=== PATIENT | female | born 1985 | race Caucasian/White ===

== ENCOUNTER 2018-04-20 12:37 | Emergency (ER) | payer OTHER ==
[2018-04-20] MEDS ORDERED: METOCLOPRAMIDE 5 MG/ML 2 ML VIAL IVP STA (13:02)
[2018-04-20] MEDS ORDERED: diphenhydrAMINE 50 MG/ML 1 ML VIAL IVP STA (13:02)
[2018-04-20] MEDS ORDERED: SODIUM CHLORIDE 0.9% 500 ML 500 ML IV ONE (13:03)
[2018-04-20] MEDS ORDERED: KETOROLAC 30 MG/ML 1 ML VIAL IVP STA (13:03)
--- NOTE | 2018-04-20 13:06 | ED ---
Headache HPI - General Chief Complaint: Headache Stated Complaint: Migraine Time Seen by Provider: 04/20/18 12:54 Source: patient, RN notes reviewed Mode of arrival: ambulatory Limitations: no limitations - History of Present Illness Initial Comments: This a 33-year-old female presents emergency Department chief complaint migraine headache. Patient states been having issues on-and-off over the last couple weeks. Patient states his headache feels different as she feels silly off balance. Patient states that she's been trying [id number] medications no relief. Denies fever, chills, neck pain or neck stiffness. Denies any blurred vision but states she is that she's had some photophobia. Patient said nausea no vomiting no fever no chills no focal weakness. Patient states that she's had extensive workup in the past including MRI and neurology consultation. - Related Data Home Medications Medication Instructions Recorded Confirmed Cetirizine HCl [Zyrtec] 10 mg PO DAILY PRN 04/20/18 04/20/18 Ibuprofen [Children's Motrin] 400 mg PO Q8HR PRN 04/20/18 04/20/18 Sudafed Pain Pressure & Mucus 2 cap PO Q4H PRN 04/20/18 04/20/18 diphenhydrAMINE HCL [Benadryl] 25 mg PO Q4H PRN 04/20/18 04/20/18 Allergies Allergy/AdvReac Type Severity Reaction Status Date / Time Penicillins Allergy Rash/Hives Verified 04/20/18 13:35 Review of Systems ROS Statement: Those systems with pertinent positive or pertinent negative responses have been documented in the HPI. ROS Other: All systems not noted in ROS Statement are negative. Past Medical History Additional Past Medical History / Comment(s): migraine, nausea History of Any Multi-Drug Resistant Organisms: None Reported Additional Past Surgical History / Comment(s): LEEP procedure 2 Past Anesthesia/Blood Transfusion Reactions: No Reported Reaction Past Psychological History: Anxiety, Depression Smoking Status: Never smoker Past Alcohol Use History: None Reported Past Drug Use History: None Reported - Past Family History Father Family Medical History: Hypertension General Exam Limitations: no limitations General appearance: alert, in no apparent distress Head exam: Present: atraumatic, normocephalic, normal inspection Eye exam: Present: normal appearance, PERRL, EOMI. Absent: scleral icterus, conjunctival injection, periorbital swelling ENT exam: Present: normal exam, normal oropharynx, mucous membranes moist, TM's normal bilaterally Neck exam: Present: normal inspection, full ROM. Absent: tenderness, meningismus, lymphadenopathy Respiratory exam: Present: normal lung sounds bilaterally. Absent: respiratory distress, wheezes, rales, rhonchi, stridor Cardiovascular Exam: Present: regular rate, normal rhythm, normal heart sounds. Absent: systolic murmur, diastolic murmur, rubs, gallop, clicks Extremities exam: Present: normal inspection, full ROM, normal capillary refill. Absent: tenderness, pedal edema, joint swelling, calf tenderness Neurological exam: Present: alert, oriented X3, CN II-XII intact, reflexes normal, other (Finger to nose intact bilaterally without over shooting). Absent : motor sensory deficit Skin exam: Present: warm, dry, intact, normal color. Absent: rash Course Vital Signs 04/20/18 12:49 Temperature 98.3 F Pulse Rate 106 H Respiratory 18 Rate Blood Pressure 134/99 O2 Sat by Pulse 99 Oximetry Medical Decision Making - Medical Decision Making 33-year-old female presented emergency department for migraine type headache. Patient states he was slightly atypical for her. CT labwork obtained patient has normal findings. Patient is improved after IV medications. Patient did have slight reaction to Ativan as she was drowsy. Patient is here with mother, discharged to mother return parameters were discussed. Patient remains to have normal neuro exam. - Lab Data Result diagrams: 04/20/18 13:37 04/20/18 13:37 Lab Results 04/20/18 04/20/18 Range/Units 13:37 13:37 WBC 9.9 (3.8-10.6) k/uL RBC 4.89 (3.80-5.40) m/uL Hgb 15.5 (11.4-16.0) gm/dL Hct 45.4 (34.0-46.0) % MCV 92.8 (80.0-100.0) fL MCH 31.8 (25.0-35.0) pg MCHC 34.2 (31.0-37.0) g/dL RDW 12.3 (11.5-15.5) % Plt Count 204 (150-450) k/uL Neutrophils % 84 % Lymphocytes % 12 % Monocytes % 3 % Eosinophils % 0 % Basophils % 0 % Neutrophils # 8.3 H (1.3-7.7) k/uL Lymphocytes # 1.2 (1.0-4.8) k/uL Monocytes # 0.3 (0-1.0) k/uL Eosinophils # 0.0 (0-0.7) k/uL Basophils # 0.0 (0-0.2) k/uL Sodium 144 (137-145) mmol/L Potassium 4.0 (3.5-5.1) mmol/L Chloride 104 (98-107) mmol/L Carbon Dioxide 27 (22-30) mmol/L Anion Gap 13 mmol/L BUN 12 (7-17) mg/dL Creatinine 0.67 (0.52-1.04) mg/dL Est GFR (CKD-EPI)AfAm >90 (>60 ml/min/1.73 sqM) Est GFR (CKD-EPI)NonAf >90 (>60 ml/min/1.73 sqM) Glucose 116 H (74-99) mg/dL Calcium 10.3 H (8.4-10.2) mg/dL Disposition Clinical Impression: Migraine Disposition: HOME SELF-CARE Condition: Stable Instructions: Acute Headache (ED) Additional Instructions: Please return to the Emergency Department if symptoms worsen or any other concerns. Is patient prescribed a controlled substance at d/c from ED?: No Referrals: Gage Link Jr, DO [Primary Care Provider] - 1-2 days Abhay Juares DO [STAFF PHYSICIAN] - 1-2 days Time of Disposition: 15:57
[2018-04-20] MEDS ORDERED: LORazepam 2 MG/ML INJ IV STA (13:24)
[2018-04-20 13:49] LABS: Basophils % (A) 0 %; Eosinophils % (A) 0 %; HCT 45.4 % (34.0-46.0); HGB 15.5 gm/dL (11.4-16.0); Lymphocytes # (A) 1.2 k/uL (1.0-4.8); Lymphocytes % (A) 12 %; MCH 31.8 pg (25.0-35.0); MCHC 34.2 g/dL (31.0-37.0); MCV 92.8 fL (80.0-100.0); Mean Platelet Volume 8.7; Monocytes # (A) 0.3 k/uL (0-1.0); Monocytes % (A) 3 %; Neutrophils # (A) 8.3 k/uL (1.3-7.7); Neutrophils % (A) 84 %; Platelet Count 204 k/uL (150-450); RBC 4.89 m/uL (3.80-5.40); RDW 12.3 % (11.5-15.5); WBC 9.9 k/uL (3.8-10.6)
[2018-04-20 14:11] LABS: Anion Gap 13 mmol/L; Blood Urea Nitrogen 12 mg/dL (7-17); Calcium 10.3 mg/dL (8.4-10.2); Carbon Dioxide 27 mmol/L (22-30); Chloride 104 mmol/L (98-107); Glucose 116 mg/dL (74-99); Sodium 144 mmol/L (137-145)
--- NOTE | 2018-04-20 14:51 | CT ---
EXAMINATION TYPE: CT brain wo con DATE OF EXAM: 04/20/2018 COMPARISON: MRI brain 09/30/2010 INDICATION: Migraine DLP: 889.7 mGycm, Automated exposure control for dose reduction was used. CONTRAST: None CT of the brain is performed utilizing 3 mm thick sections through the posterior fossa and 3 mm thick sections through the remaining calvarium. Study is performed within 24 hours of arrival to the hosp [facility]. No abnormal hyperdensity is present to suggest an acute intracranial hemorrhage. No mass lesion is evident. No acute infarcts are evident. Ventricles and sulci are appropriate for the patient age. Paranasal sinuses and mastoid air cells within the [id number] are clear. IMPRESSIONS: 1. Normal CT Brain
[2018-04-20 16:18] VITALS: BP 112/70; PULSE 96; RESP 16; TEMP 97.8
== END 2018-04-20 16:10 | disposition home or self-care (01) ==
LOC: EC 12:37
DX: G43.909 Migraine, unspecified, not intractable, without status migrainosus (principal); Z88.0 Allergy status to penicillin
CPT/HCPCS: 36415; 80048; 85025; 70450; 99284; 96374; 96375 ×3; 96361; J2060; J1200; J2765; J1885

== ENCOUNTER 2021-04-26 08:08 | Emergency (ER) | payer MEDICAID, OTHER ==
[2021-04-26 08:13] VITALS: RESP 18; TEMP 98
[2021-04-26] MEDS ORDERED: PROCHLORPERAZINE INJ 10 MG/2 ML VIAL IM STA (08:28)
[2021-04-26] MEDS ORDERED: KETOROLAC 15 MG/ML 1 ML VIAL IM STA (08:28)
[2021-04-26] MEDS ORDERED: diphenhydrAMINE 50 MG/ML 1 ML VIAL IM STA (08:28)
--- NOTE | 2021-04-26 08:34 | ED ---
General Adult HPI - General Chief complaint: Headache Stated complaint: headache Time Seen by Provider: 04/26/21 08:16 Source: patient, RN notes reviewed, old records reviewed Mode of arrival: ambulatory Limitations: no limitations - History of Present Illness Initial comments: Patient is a 36-year-old female with past medical history for migraines presents emergency Department complaining of a typical migraine. She describes it as a throbbing/sharp pain all over her head which is typical for her. It began at midnight last night and did not respond to Tylenol at home. She does have an episode of nausea with it as well as well as nonbilious no bloody emesis but did throw up the Tylenol. The emesis is new, she to be feels nauseous but is able to keep Tylenol down. She denies any weakness, numbness, neurological complaints. Denies any chest pain, shortness of breath, abdominal pain, urinary complaints. States she is not . She has no other acute complaints at this time. She presents seeking analgesia for her migraine headache which is typical for her. Denies any recent trauma or injuries. This headache is not worse than her typical migraine headaches.Patient does endorse photophobia and photophobia which is typical for her. - Related Data Home Medications Medication Instructions Recorded Confirmed Cetirizine HCl [Zyrtec] 10 mg PO DAILY PRN 04/20/18 04/20/18 Ibuprofen [Children's Motrin] 400 mg PO Q8HR PRN 04/20/18 04/20/18 Sudafed Pain Pressure & Mucus 2 cap PO Q4H PRN 04/20/18 04/20/18 diphenhydrAMINE HCL [Benadryl] 25 mg PO Q4H PRN 04/20/18 04/20/18 Allergies Allergy/AdvReac Type Severity Reaction Status Date / Time Penicillins Allergy Rash/Hives Verified 04/26/21 08:13 Review of Systems ROS Statement: Those systems with pertinent positive or pertinent negative responses have been documented in the HPI. Review of Systems: CONST: Denies fever EYES: Denies blurry vision ENT: Denies nasal congestion C/V: Denies Chest pain RESP: Denies shortness of breath GI: Denies abdominal pain : Denies dysuria SKIN: Denies rash. MSK: Denies joint pain. NEURO: Endorses headache ROS Other: All systems not noted in ROS Statement are negative. Past Medical History Additional Past Medical History / Comment(s): migraine, nausea History of Any Multi-Drug Resistant Organisms: None Reported Additional Past Surgical History / Comment(s): LEEP procedure 2 Past Anesthesia/Blood Transfusion Reactions: No Reported Reaction Past Psychological History: Anxiety, Depression Smoking Status: Never smoker Past Alcohol Use History: None Reported Past Drug Use History: None Reported - Past Family History Father Family Medical History: Hypertension General Exam - General Exam Comments Initial Comments: General: Appears in mild distress secondary to her migraine headache. HEAD: Normal with no signs of head trauma. EYES: PERRLA, EOMI, conjunctiva normal, no discharge. Pupils are 3 mm and equally reactive bilaterally. ENT: Hearing grossly intact, normal oropharynx. RESPIRATORY: Clear breath sounds bilaterally. No wheezes, rales, or rhonchi. C/V: Regular rate and rhythm. S1 and S2 auscultated, no edema, peripheral pulses 2+ and intact throughout ABD: Abd is soft, nontender, nondistended EXT: Normal range of motion, no obvious deformity SKIN: No rashes or lesions observed on exposed skin. NEURO: Alert and oriented x 4. Cranial nerves II-XII intact. No focal sensory or strength deficits. Cerebellar function is intact as evident by normal finger to nose testing. Patient is able to ambulate without difficulty. Limitations: no limitations Course Vital Signs 04/26/21 08:10 Temperature 98.0 F Pulse Rate 100 Respiratory 18 Rate Blood Pressure 146/96 O2 Sat by Pulse 100 Oximetry Medical Decision Making - Medical Decision Making Based on the patient's presentation and physical exam, I believe she is having migraine headache. I did offer her a migraine cocktail however she requested that we do not place an IV as she gets very anxious. She is requesting IM Depo injections instead. I believe this is reasonable. She'll be given IM Toradol, Benadryl, Compazine and reevaluated. Patient was in agreement with this plan.I do not believe that laboratory studies or imaging are required at this time. On reevaluation, patient's headache is improved. She states it is approximately a 3 out of 10. She would like to go home at this time. I believe this is reasonable. Exam and vital signs remained stable and unchanged. I instructed the patient to follow up with their PCP in the next 3 days. I explained that the patient should return to the emergency department if they experience any worsening symptoms. Strict return precautions were discussed with the patient. The patient expressed understanding of these instructions. I answered all questions that the patient had. The patient was discharged home in fair condition with their prescriptions and follow up information. Disposition Clinical Impression: Migraine headache Disposition: HOME SELF-CARE Condition: Fair Instructions (If sedation given, give patient instructions): Migraine Headache (ED) Is patient prescribed a controlled substance at d/c from ED?: No Referrals: Gage Link Jr, DO [Primary Care Provider] - 1-2 days
[2021-04-26 09:54] VITALS: BP 135/85; PULSE 78
== END 2021-04-26 09:55 | disposition home or self-care (01) ==
LOC: EC 08:08
DX: G43.909 Migraine, unspecified, not intractable, without status migrainosus (principal); F41.9 Anxiety disorder, unspecified; F32.9 Major depressive disorder, single episode, unspecified; Z88.0 Allergy status to penicillin
CPT/HCPCS: 99283; 96372 ×3; J1200; J0780; J1885